=== PATIENT | male | born 1995 | race Two or more races ===

== ENCOUNTER 2024-03-09 08:32 | Outpatient (REF) | payer MEDICAID, SELFPAY ==
--- NOTE | ~2024-03-09 | XR_ITS ---
EXAMINATION: XR CHEST CLINICAL INFORMATION: Left sided upper back and chest pain COMPARISON: None available. TECHNIQUE: 2 views of the chest were obtained. FINDINGS: The lungs are well-expanded. No focal consolidation. 0.9 cm nodule/nodular opacity projecting over the anterior third rib in the left upper lobe. No pleural effusions or pneumothorax. The cardiomediastinal silhouette is within normal limits. No acute osseous abnormality. XR/XR chest 2V IMPRESSION: No acute pulmonary disease. 0.9 cm nodule/nodular opacity projecting over the anterior third rib in the left upper lobe. Further evaluation with CT chest can be considered for better characterization. Electronically signed by: Jv Power MD 03/09/2024 10:18 AM EDT
== END 2024-03-09 08:33 | disposition home or self-care (01) ==
LOC: HO.HHCX 08:32
PROVIDERS: Visit Provider Family Medicine
DX: R07.89 Other chest pain (principal); M54.9 Dorsalgia, unspecified
CPT/HCPCS: 71046

== ENCOUNTER 2024-04-30 15:46 | Outpatient (REF) | payer MEDICAID, SELFPAY ==
--- NOTE | ~2024-04-30 | CT_ITS ---
EXAMINATION: CT CHEST WITH CONTRAST CLINICAL INFORMATION: Evaluation of pulmonary nodule. COMPARISON: Chest radiograph 03/09/2024. TECHNIQUE: Multidetector volumetric CT imaging of the chest was obtained after the administration of 65 mL of Omnipaque 350 intravenous contrast without immediate adverse reactions. Axial MIP volume rendering provided. Sagittal and coronal reformatted images were obtained. This CT examination was performed using dose optimization techniques as appropriate, variously including the following: *Automated exposure control *Adjustment of mA and/or kV according to patient size (this includes techniques or standardized protocols for targeted exams where dose is matched to indication/reason for exam; i.e. extremities or head) *Use of iterative reconstruction technique DLP: 104 mGy-cm FINDINGS: LUNGS: No consolidation or significant groundglass disease. Central airways are patent. There is a 11 x 9 mm pulmonary nodule in the left upper lobe which is almost entirely calcified. There is a 5 mm solid pulmonary nodule in the left lower lobe abutting the left major fissure (5:89) and a micronodule more superiorly abutting the left major fissure (5:55). MEDIASTINUM: Normal heart size. No pericardial effusion. No coronary artery calcifications. Partially calcified left hilar lymph nodes are seen. No mediastinal lymphadenopathy. Normal appearance of the thyroid gland. PLEURA: No pleural effusion or pneumothorax. No pleural mass. AXILLA: No lymphadenopathy. UPPER ABDOMEN: Hepatic steatosis with a few regions of transient perfusional abnormalities, for example adjacent to the gallbladder on image 51 series 3. OSSEOUS STRUCTURES: Unremarkable. CT/CT chest w IV con IMPRESSION: Corresponding to the abnormality in question on the prior chest radiograph, there is an 11 mm predominantly calcified left upper lobe nodule. There are partially calcified left hilar lymph nodes. In a patient of this age, these findings are suggestive of sequela of a healed infection/inflammatory process. At least 2 additional pulmonary nodules abutting the left major fissure could represent fissural-based lymph nodes. In patients younger than age 35, standard Fleischner Society recommendations for incidental pulmonary nodule follow-up do not apply as nodules in this age group are most likely to be infectious/inflammatory. Recommend clinical correlation with any risk factors to assess if follow-up of these nodules is clinically warranted. Incidentally noted hepatic steatosis. Electronically signed by: Nerissa Perdomo MD 04/30/2024 08:06 PM [facility]
[2024-04-30] MEDS: iohexoL 350 MG/ML 100 ML INFUS..BTL 65 ML IV (16:46)
== END 2024-04-30 15:47 | disposition home or self-care (01) ==
LOC: HO.CT 15:46
PROVIDERS: Visit Provider Family Medicine
DX: R91.1 Solitary pulmonary nodule (principal)
CPT/HCPCS: 71260; Q9967

== ENCOUNTER 2024-09-07 14:39 | Outpatient (REF) | payer MEDICAID, OTHER, SELFPAY ==
--- NOTE | ~2024-09-07 | CT_ITS ---
CLINICAL HISTORY: LUNG NODULE CT chest without contrast Comparison: CT/IL/SR - CT CHEST W IV CON - 04/30/24 16:06 EST Findings: The heart is normal size. The visualized thyroid and mediastinum are unremarkable. Calcified granuloma of the left upper lobe. Stable 5 mm para fissural nodule of the left lower lobe series 4, image 72. Stable micro nodule abutting the left major fissure on image 48. The visualized upper abdomen is unremarkable. The bones are intact. IMPRESSION: Stable pulmonary nodules. The Fleischner criteria does not apply due to patient's young age. CT chest follow-up as indicated. This document has been electronically signed by: Daniel Tomlinson MD on 09/10/2024 13:25:53
--- OUTSIDE RECORDS SUMMARY | 2024-09-07 16:59 | XMS_ITS | Clinical Summary ---
Author Organization [employer] Address [address] [facility] [address] [place] [address] Care Team Providers Care Maintenance Shop Welder Name Role Phone Unavailable Primary Care Provider Unavailabl e Allergies No known active allergies Medications cyclobenzaprine (Flexeril) 10 MG tablet Take 1 tablet (10 mg) by mouth 3 times daily for 10 days. 30 tablet 09/05/2023 Active Encounters Date Type Department Care Team Description 06/30/2024 Telephone [facility] [address] [place] [id number] Fredrick Fuentes MD 06/29/2024 Telephone [facility] [address] [place] [id number] Janae Breen RN Results; Plan of Care (Pt requesting d/w results of 04/30/[address] results (attached)/Also CXR results 03/09/24 (attached)) from Last 3 Months Social History Tobacco Use Types Packs/Day Years Used Date Smoking Tobacco: Some Days Cigarettes Smokeless Tobacco: Never Tobacco Cessation:Ready to Q uit: Not Asked; Counseling Given: Not Answered Comments:1-2 times monthly Alcohol Use Standard Drinks/Week Comments Not Asked 0 (1 standard drink = 0.6 oz pur e alcohol) weekends Sex and Gender Information Value Date Recorded Sex Assigned at Male 04/19/2022 10:35 AM EDT Legal Sex Male 10:35 AM EDT Gender Identity Male 03/05/2024 5:27 PM EDT Sexual Orientation Straight 03/05/2024 5: 27 PM EDT Last Filed Vital Signs Vital Sign Reading Time Taken Comments Blood Pressure 136/95 03/05/2024 5:54 PM EDT Pulse 62 03/05/2024 5:54 PM EDT Temperature 36.9 ??C (98.5 ??F) 03/05/2024 5:54 PM ED T Respiratory Rate 16 03/05/2024 5:54 PM EDT Oxygen Saturation 98% 03/05/2024 5:54 PM EDT Inhaled Oxygen Concentration - - Weight 64.2 kg (141 lb 9.6 oz) 03/05/2024 5:54 P M EDT Height 160 cm (5' 3 ) 03/05/2024 5:54 PM EDT Body Mass Index 25.08 03/05/2024 5:54 PM EDT Plan of Treatment Health Maintenance Due Date Last Done Comments Depression Screening 1995 HIV Screening 1995 Lipid Panel 1995 SDOH Screening 1995 Alcohol/Substance Use Screening 2007 Family Planning (PISQ) 2010 Hepatitis C Screening 2013 DTaP/Tdap/Td Vaccines (1 - Tdap) 2014 Hepatitis B Vaccines (1 of 3 - 19+ 3-dose series) 2014 Pneumococcal Vaccine: Pediat rics (0 to 5 Years) and At-Risk Patients (6 to 49) Years) (1 of 2 - PCV) 2014 COVID-19 Vaccine ( - 2023-2 5 season) 2024 Influenza Vaccine (#1) 2024 06/24/2020 Tobacco Screening 09/04/2024 09/05/2023 Zoster Vaccines (1 of 2) 2045 RSV Patients and Pa tients Aged 60 years or older (1 - 1-dose 75+ series) 2070 HIB Vaccines Aged Out No longer eligi ble based on patient's age to complete this topic HPV Vaccines Aged Out No longer eligi ble based on patient's age to complete this topic Hepatitis A Vaccines Aged Out No long er eligible based on patient's age to complete this topic IPV Vaccines Aged Out No longer eligi ble based on patient's age to complete this topic Meningococcal Vaccine Aged Out No ena ugo eligible based on patient's age to complete this topic RSV under 20 months Aged Out No longe r eligible based on patient's age to complete this topic Rotavirus Vaccines Aged Out No longer eligible based on patient's age to complete this topic Insurance LIMITED HSN FULL HSN PARTIAL
== END 2024-09-07 14:40 | disposition home or self-care (01) ==
LOC: HO.CT 14:39
PROVIDERS: Visit Provider Family Medicine
DX: R91.1 Solitary pulmonary nodule (principal)
CPT/HCPCS: 71250

== ENCOUNTER → 2024-09-07 14:42 | Outpatient (BNV) | payer MEDICAID, SELFPAY | PROVIDERS: Visit Provider Nuclear Medicine | DX: R91.8 Other nonspecific abnormal finding of lung field (principal) | CPT/HCPCS: 71250 ==